=== PATIENT | female | born 2000 | race Caucasian/White ===

== ENCOUNTER 2024-10-15 20:45 | Emergency (ER) | payer SELFPAY ==
[2024-10-15 20:54] VITALS: BP 133/77; PULSE 85; RESP 18; TEMP 36.5; O2SAT 99
--- NOTE | 2024-10-15 21:18 | ED.GENADUL_ITS ---
Discharge Plan Disposition Patient Disposition: Home Condition: Stable Discharge Details Clinical Impression: Intertriginous candidiasis Primary Care Provider: None,None ED Provider: Betty Adams Home Meds and New Rx's Prescriptions: New clotrimazole 1 % cream 1 applic topical TID 21 Days Qty: 45 4RF Discharge Instructions Instructions: Intertrigo (DC) Additional Instructions: As discussed keep the area clean and dry. Wash with warm soapy water, pat dry, apply the cream that I have prescribed and put [id number] antifungal powder. Do this for 3 weeks 3 times a day. Please follow-up with your primary care doctor as well but return to the emergency department immediately with any worsening symptoms or any other concerns. HPI General Date/Time Provider Initiated Documentation: 10/15/24 20:57 . HPI Narrative: The patient is a 24-year-old female without any significant past medical history who comes the emergency department for a rash on her left abdomen. Reports he just noticed it 3 days ago. Reports it is uncomfortable. Denies using any new soaps or creams. She denies history of similar type problems in the past. Reports she has not done anything to help with the rash. Reports otherwise that she feels at baseline health. Denies any fever. Denies abdominal pain, nausea or vomiting. Denies insect bites. Related Data Home Medications ?Medication ?Instructions ?Recorded ?Confirmed clotrimazole 1 % topical cream 1 applic topical TID 3 weeks #45 10/15/24 grams Previous Rx's ?Medication ?Instructions ?Recorded clotrimazole 1 % topical cream 1 applic topical TID 3 weeks #45 10/15/24 grams Allergies Allergy/AdvReac Type Severity Reaction Status Date / Time No Known Allergies Allergy Unverified 10/15/24 20:59 General Stated Complaint: RashLesion PRINCE: 5 Review of Systems Narrative: Review of systems are negative except as mentioned. Exam Narrative Exam Narrative: General appearance: The patient is alert, has no immediate need for airway protection and no signs of toxicity. Gastrointestinal: Nontender to palpation throughout. Skin: Underneath the fold of her abdominal skin on the left side the patient has area of erythema that is moist in the center with patchy lesions around concerning for intertrigo candidiasis. Course Vital Signs Vital signs: Vital Signs Temperature 36.5 C 10/15/24 20:54 Pulse 85 10/15/24 20:54 Respiratory Rate 18 10/15/24 20:54 Blood Pressure 133/77 10/15/24 20:54 Pulse Oximetry 99 10/15/24 20:54 Temperature 36.5 C 10/15/24 20:54 Temperature Source Tympanic 10/15/24 20:54 Pulse 85 10/15/24 20:54 Respiratory Rate 18 10/15/24 20:54 Blood Pressure 133/77 10/15/24 20:54 Blood Pressure Position Sitting 10/15/24 20:54 Pulse Oximetry 99 10/15/24 20:54 Oxygen Delivery Method Room Air 10/15/24 20:54 Oxygen Flow Rate 0 10/15/24 20:54 Pain Level 0 10/15/24 20:54 Medical Decision Making I told the patient of my concern for candidal infection and for this I recommended keeping the area clean and dry. I will prescribe antifungal cream but asked her to use antifungal powder also that she can buy [id number] at the local pharmacy. She is asked to use this for at least 3 weeks and asked to follow-up with her primary care doctor as well but urged to return to the emergency department with any worsening symptoms or any other concerns. Quality:SDOH Health Related Social Needs: Health related social needs risk of homeless food inse curity material hardship house/econ circumstance daily activities Health related social needs details pt endorses being homeless PFSH All Active Problems (Updated 10/15/24 @ 21:22 by Betty Adams DO) Intertriginous candidiasis (Acute) Social History Smoking/Tobacco Use Status: Never Smoking risk assessment performed?: Yes Alcohol Intake: current Alcohol Intake frequency: holidays/special occasions only Drug use: Daily Substance use type: marijuana Housing: homeless
== END 2024-10-15 21:36 | disposition home or self-care (01) ==
LOC: ER 21:32
PROVIDERS: Emergency Provider Emergency Medicine
DX: B37.2 Candidiasis of skin and nail (principal); Z59.41 Food insecurity; Z59.87 Material hardship due to limited financial resources, not elsewhere classified; Z59.811 Housing instability, housed, with risk of homelessness
CPT/HCPCS: 99283 ×2